=== PATIENT | male | born 2005 | race Two or more races ===

== ENCOUNTER → 2025-04-13 | Emergency (ER) | payer MEDICAID, OTHER ==
[~2025-04-13] VITALS: Ht 175.3 cm; Wt 76.7 kg
[2025-04-13 01:22] VITALS: BP 105/64; TEMP 98.6; O2SAT 95
== END | disposition left against medical advice (07) ==
LOC: ER 01:22
DX: S01.81XA Laceration without foreign body of other part of head, initial encounter (principal); Z60.2 Problems related to living alone; Z59.00 Homelessness unspecified; X58.XXXA Exposure to other specified factors, initial encounter; Y93.9 Activity, unspecified; Y92.89 Other specified places as the place of occurrence of the external cause; Y99.8 Other external cause status